=== PATIENT | female | born 1995 | race African-American/Black ===

== ENCOUNTER 2017-09-24 08:09 | Emergency (ER) | payer SELFPAY ==
[~2017-09-24] VITALS: Ht 147.3 cm; Wt 65.0 kg
[~2017-09-24 08:09] MED LIST: AMOX500T PO
[2017-09-24 08:34] VITALS: BP 127/73; PULSE 83; RESP 18; TEMP 98.5; O2SAT 100
[2017-09-24 08:48] VITALS: BP 135/92; PULSE 91; RESP 17; O2SAT 100
[2017-09-24] MEDS ORDERED: LORazepam 1 MG TAB PO ONE (09:00)
--- NOTE | 2017-09-24 09:32 | PD ---
HPI Chief Complaint: Chest Pain Time Seen by Provider: 08:47 Travel History International Travel<30 days: No Contact w/Intl Traveler<30days: No Traveled to known affect area: No History of Present Illness HPI Is a 22-year-old woman who presents to the emergency department complaining of "anxiety attack" this started this morning. She states she has had symptoms multiple times in the past, occurring once or twice a year. Last one was last year. States that she has been under a lot of stress recently. She woke up with the symptoms. No clear antecedent events otherwise. She feels better now. Feels similar when she has had anxiety attacks in the past. She had chest pain with associated shortness of breath. No other aggravating or alleviating factors. Chest pain is retrosternal in the mid chest, no radiation. History Past Medical History Narrative Medical Anxiety attack LMP: last month around the 6th Social History Alcohol Use: Yes (OCC) Tobacco Use: No Allergies-Medications (Allergen,Severity, Reaction): Coded Allergies: No Known Allergies (Verified Adverse Reaction, Unknown, 09/24/17) Reported Meds & Prescriptions Reported Meds & Active Scripts Active Review of Systems Except as stated in HPI: all other systems reviewed are Neg Physical Exam Narrative GENERAL: Well-appearing 19-year-old woman, no acute distress. SKIN: Focused skin assessment warm/dry. HEAD: Atraumatic. Normocephalic. EYES: Pupils equal and round. No scleral icterus. No injection or drainage. ENT: No nasal bleeding or discharge. Mucous membranes pink and moist. NECK: Trachea midline. No JVD. CARDIOVASCULAR: Regular rate and rhythm. No murmur appreciated. RESPIRATORY: No accessory muscle use. Clear to auscultation. Breath sounds equal bilaterally. GASTROINTESTINAL: Abdomen soft, non-tender, nondistended. Hepatic and splenic margins not palpable. MUSCULOSKELETAL: No obvious deformities. No clubbing. No cyanosis. No edema. NEUROLOGICAL: Awake and alert. No obvious cranial nerve deficits. Motor grossly within normal limits. Normal speech. PSYCHIATRIC: Appropriate mood and affect; insight and judgment normal. Data Data Last Documented VS Vital Signs Date Time Temp Pulse Resp B/P (MAP) Pulse Ox O2 Delivery O2 Flow Rate FiO2 09/24/17 08:48 91 17 135/92 (106) 100 Room Air 09/24/17 08:34 98.5 Orders Orders Electrocardiogram (09/24/17 ) Lorazepam (Ativan) (09/24/17 09:00) Chest, Pa & Lat (09/24/17 ) MDM Medical Decision Making Medical Screen Exam Complete: Yes Emergency Medical Condition: Yes Interpretation(s) My review of EKG: Normal sinus rhythm at a rate of 80, normal axis, normal intervals, no acute ischemia. Chest x-ray negative Differential Diagnosis Anxiety attack, PE, pneumothorax, pericarditis, other Narrative Course Medical decision making appears well 19-year-old woman presents emerged from complaining of anxiety attack. She is some chest pain shortness breath with appears resolved now. She looks well. BRCA negative. No risk factors for PE dissection or other more severe pathology. EKG is normal. Will check chest x- ray, likely discharge. Diagnosis Primary Impression: Anxiety attack Patient Instructions: General Instructions Additional Instructions: Follow-up with your primary doctor for not well in 2-3 days. Return to the emergency department for any new or worsening symptoms. Med/Other Pt SpecificInfo: No Change to Meds Scripts No Active Prescriptions or Reported Meds Disposition: 01 DISCHARGE HOME Condition: Stable Henry Keen MD September 24, 2017 09:32
--- NOTE | 2017-09-24 09:40 | RADRPT ---
EXAM DATE: 09/24/2017 9:36 AM EDT AGE/SEX: 22 years / Female INDICATIONS: Short of breath, chest discomfort, anxiety today CLINICAL DATA: This is the patient's initial encounter. Patient reports that signs and symptoms have been present for 1 day and indicates a pain score of Nonresponsive. MEDICAL/SURGICAL HISTORY: . anxiety None. COMPARISON: No prior [facility] exams available for comparison. FINDINGS: PA and lateral views of the chest demonstrate the lungs to be symmetrically aerated without evidence of mass, infiltrate or effusion. The cardiomediastinal contours are unremarkable. Osseous structures are intact. CONCLUSION: No acute cardiopulmonary disease Electronically signed by: Toni Roth MD 09/24/2017 9:39 AM EDT
[2017-09-24 09:52] VITALS: BP 124/78
--- NOTE | 2017-09-24 13:58 | EKG ---
Date Performed: 09/24/2017 Time Performed: 08:47:20 PTAGE: 22 years EKG: Sinus rhythm NORMAL ECG NO PREVIOUS TRACING DOCTOR: Ulises Johnson Interpretating Date/Time 09/27/2017 08:11:41
== END 2017-09-24 09:58 | disposition home or self-care (01) ==
LOC: NEPC 08:09
DX: F41.0 Panic disorder [episodic paroxysmal anxiety] (principal)
CPT/HCPCS: 71046; 93005